=== PATIENT | male | born 1990 | race Two or more races ===

== ENCOUNTER 2017-05-13 12:13 | Observation (INO) | payer OTHER ==
[~2017-05-13] VITALS: Ht 175.3 cm; Wt 119.0 kg
[2017-05-13 12:29] VITALS: BP 167/97
[2017-05-13] MEDS ORDERED: HYDROcodone/APAP 5/325 TABLET PO PRN (14:00)
[2017-05-13] MEDS ORDERED: POLYETHYLENE GLYCOL 17 GM PACKET PO PRN (14:00)
[2017-05-13] MEDS ORDERED: LORazepam 1MG TABLET PO PRN (14:00)
[2017-05-13] MEDS: PLEASE ENTER HEIGHT AND WEIGHT MC SCH ×2 (14:30→22:30)
[2017-05-13] MEDS: PLEASE ENTER ALLERGIES MC SCH ×4 (14:30→22:30)
[2017-05-13 14:37] LABS: HEMATOCRIT 47.1 % (39.2-51.8); HEMOGLOBIN 16.4 g/dL (13.7-18.0); WHITE BLOOD COUNT 9.4 x10^3/uL (3.4-10)
[2017-05-13 14:50] LABS: BLOOD UREA NITROGEN 18 mg/dL (7-18)
[2017-05-13 14:59] LABS: ACETAMINOPHEN < 2 mcg/mL (10-30); ASPARTATE AMINO TRANSFERASE 31 U/L (15-37)
[2017-05-13 16:31] LABS: DAU SCREEN DISCLAIMER
[2017-05-13 20:00] VITALS: BP 135/80
[2017-05-14] MEDS: PLEASE ENTER HEIGHT AND WEIGHT MC SCH ×2 (06:30→14:30)
[2017-05-14] MEDS: PLEASE ENTER ALLERGIES MC SCH ×6 (06:30→22:30)
[2017-05-14 08:00] VITALS: BP 132/80
[2017-05-14] MEDS: SENNA/DOCUSATE TABLET PO SCH (09:14)
[2017-05-14 19:37] VITALS: BP 148/89
[2017-05-15] MEDS: PLEASE ENTER ALLERGIES MC SCH ×6 (06:30→22:30)
[2017-05-15] MEDS: PLEASE ENTER HEIGHT AND WEIGHT MC SCH ×3 (06:30→22:30)
[2017-05-15 08:00] VITALS: BP 146/80
[2017-05-15] MEDS: SENNA/DOCUSATE TABLET PO SCH (09:00)
[2017-05-15] MEDS: PANTOPROZOLE 40MG TABLET PO SCH (12:22)
[2017-05-15 19:41] VITALS: BP 135/79
[2017-05-16] MEDS: PLEASE ENTER ALLERGIES MC SCH ×4 (06:30→14:30)
[2017-05-16] MEDS: PLEASE ENTER HEIGHT AND WEIGHT MC SCH ×2 (06:30→14:30)
[2017-05-16] MEDS: PANTOPROZOLE 40MG TABLET PO SCH (07:00)
[2017-05-16] MEDS: SENNA/DOCUSATE TABLET PO SCH (07:37)
[2017-05-16 07:48] VITALS: BP 129/84
[2017-05-16 19:32] VITALS: BP 125/76
[2017-05-17 07:37] VITALS: BP_SYST 126; BP_SYST 156; BP_DIAS 80; BP_DIAS 91
[2017-05-17] MEDS: PANTOPROZOLE 40MG TABLET PO SCH (08:58)
[2017-05-17] MEDS: SENNA/DOCUSATE TABLET PO SCH (08:59)
== END 2017-05-17 16:36 | disposition home or self-care (01) ==
LOC: 3E 12:13 → INTOOBSV 12:13
PROVIDERS: ADMIT Internal Medicine; ATTEND Internal Medicine
DX: R45.851 Suicidal ideations (principal); F32.9 Major depressive disorder, single episode, unspecified; K21.9 Gastro-esophageal reflux disease without esophagitis; I25.10 Atherosclerotic heart disease of native coronary artery without angina pectoris; I11.0 Hypertensive heart disease with heart failure; I50.9 Heart failure, unspecified; Z82.49 Family history of ischemic heart disease and other diseases of the circulatory system
CPT/HCPCS: 36415; 80053; 80307; 80329; 84439; 84443; 85025; 93005; G0378; G0479; G0480

== ENCOUNTER 2017-06-19 21:13 | Emergency (ER) | payer OTHER ==
[~2017-06-19] VITALS: Ht 175.3 cm; Wt 119.7 kg
[2017-06-19 23:12] VITALS: BP 104/58
== END 2017-06-19 23:27 | disposition home or self-care (01) ==
LOC: ED 22:22
DX: R07.89 Other chest pain (principal); F41.1 Generalized anxiety disorder
CPT/HCPCS: 71046; 93005; 99284